=== PATIENT | female | born 1970 | race Caucasian/White ===

== ENCOUNTER 2022-02-13 07:27 | Observation (INO) | payer OTHER ==
[~2022-02-13 07:27] MED LIST: Sensorcaine 0.25% 10 ML ONE
[2022-02-13] MEDS ORDERED: Pepcid 20 MG PO ONE (07:52)
[2022-02-13] MEDS ORDERED: Transderm Scop 1.5MG Patch TOP PRN (07:52)
[2022-02-13] MEDS ORDERED: Reglan 10 MG/2 ML IV ONE (07:52)
[2022-02-13] MEDS ORDERED: OFIRMEV 1,000 MG/100 ML ML IV ONE (07:57)
[2022-02-13] MEDS ORDERED: MEFOXIN 2 GM PREMIX** 2 GM/50 ML ML IV ONE (07:58)
[2022-02-13] MEDS ORDERED: OFIRMEV 100 ML IV ONE (07:58)
[2022-02-13] MEDS ORDERED: Reglan 10 MG/2 ML ONE (07:59)
[2022-02-13] MEDS ORDERED: Transderm Scop 1.5MG Patch ONE (07:59)
[2022-02-13] MEDS ORDERED: Lactated Ringers 1,000 ML IV ONE (07:59)
[2022-02-13] MEDS ORDERED: Pepcid 20 MG VIAL IV ONE (07:59)
[2022-02-13] MEDS ORDERED: Pepcid 20 MG VIAL IV SCH (08:00)
[2022-02-13] MEDS ORDERED: NEURONTIN 300 MG PO SCH (08:00)
[2022-02-13] MEDS ORDERED: Lactated Ringers 1,000 ML IV SCH (08:00)
[2022-02-13] MEDS ORDERED: TYLENOL EXTRA STRENGTH 500 MG PO SCH (08:00)
[2022-02-13] MEDS ORDERED: MEFOXIN 2 GM PREMIX** 2 GM/50 ML ML IV SCH (08:00)
[2022-02-13 08:25] LABS: INFLUENZA A NEGATIVE (NEGATIVE); INFLUENZA B NEGATIVE (NEGATIVE); RESPIRATORY SYNCTIAL VIRUS NEGATIVE (Negative); SARS-CoV-2 Xpert Express NEGATIVE (NEGATIVE)
[2022-02-13 08:46] LABS: Hematocrit 44.6 % (35-47); Hemoglobin 14.2 gm/dl (12.0-16.0); Mean Cell Volume 92.5 fl (78-100); Mean Corpuscular Hemoglobin 29.5 pg (26-32); Mean Corpuscular Hgb Concent. 31.8 g/dl (32-36); Mean Platelet Volume 11.6 fl (7.5-11.0); Platelet Count 183 K/mm3 (150-450); Red Blood Count 4.82 M/mm3 (4.1-5.4); Red Cell Distribution Width 14.8 % (11.5-14.0); White Blood Count 3.9 K/mm3 (4.0-10.5)
[2022-02-13 08:54] LABS: ALBUMIN 3.9 g/dL (3.5-5.0); ALKALINE PHOSPHATASE 51 U/L (38-126); ANION GAP 11.6 MEQ/L (5-15); BLOOD UREA NITROGEN 7 mg/dL (7-17); CHLORIDE 104 mmol/L (98-107); Calcium 9.3 mg/dL (8.4-10.2); Carbon Dioxide 29 mmol/L (22-30); Creatinine 1 0.71 mg/dL (0.52-1.04); EST GLOMERULAR FILTRATION RATE > 60.0 ML/MIN; Glucose 106 mg/dL (74-106); Potassium 3.8 mmol/L (3.5-5.1); SGOT/AST 17 U/L (14-36); SGPT/ALT 12 U/L (0-35); SODIUM 140 mmol/L (137-145)
[2022-02-13 09:20] LABS: ABO TYPING A
[2022-02-13 09:21] LABS: Antibody Screen NEGATIVE (NEGATIVE); RH TYPING POSITIVE
[2022-02-13] MEDS ORDERED: Versed 2 MG/2 ML Injection ONE (10:02)
[2022-02-13] MEDS ORDERED: Zemuron 100 MG/10 ML ONE (10:02)
[2022-02-13] MEDS ORDERED: BRIDION 200MG/2ML IV ONE (10:02)
[2022-02-13] MEDS ORDERED: Zofran 4 MG/2 ML VIAL ONE (10:02)
[2022-02-13] MEDS ORDERED: Decadron 4 MG INJ ONE (10:02)
[2022-02-13] MEDS ORDERED: Astramorph-Pf 5 MG/10 ML ONE (10:02)
[2022-02-13] MEDS ORDERED: Xylocaine-Mpf 2% 5 Ml Vial ONE (10:02)
[2022-02-13] MEDS ORDERED: DIPRIVAN 200 MG/20 ML IV ONE (10:02)
[2022-02-13] MEDS ORDERED: SUBLIMAZE 100 MCG/2 ML ONE (10:02)
[2022-02-13] MEDS ORDERED: TORAdol 30 mg Injection ONE (10:02)
[2022-02-13] MEDS ORDERED: Ephedrine Sulfate 50 MG/ML ONE (10:52)
[2022-02-13] MEDS ORDERED: ROBINUL ONE (11:01)
[2022-02-13] MEDS ORDERED: XYLOCAINE 1%/Epi 1:100000 MDV 20 ML ONE (11:35)
[2022-02-13] MEDS ORDERED: Nubain 10 MG/ML IV PRN (13:00)
[2022-02-13] MEDS ORDERED: MORPHINE SULFATE 2 MG INJ IV PRN (13:00)
[2022-02-13] MEDS ORDERED: PERCOCET TABLET 5/325MG PO PRN (13:00)
[2022-02-13] MEDS ORDERED: BENADRYL 50 MG/ML IV PRN (13:00)
[2022-02-13] MEDS ORDERED: DEMEROL 50 MG IV PRN (13:00)
[2022-02-13] MEDS ORDERED: Sodium Chloride 0.9% 10 ML FLUSH Syringe IJ PRN (13:00)
[2022-02-13] MEDS ORDERED: Narcan 0.4 MG/ML IV PRN (13:00)
[2022-02-13] MEDS ORDERED: Zofran 4 MG/2 ML VIAL IV PRN ×2 (13:00→13:43)
[2022-02-13] MEDS ORDERED: CLARITIN 10 MG PO PRN (13:00)
[2022-02-13] MEDS ORDERED: TORAdol 30 mg Injection IV PRN (13:44)
[2022-02-13] MEDS ORDERED: MEDICATION INTERVENTION PO SCH ×2 (14:15)
[2022-02-13] MEDS: MEFOXIN 2 GM PREMIX** 2 GM/50 ML ML IV SCH ×2 (14:34→21:17)
[2022-02-13] MEDS: Reglan 10 MG/2 ML IV SCH ×2 (14:34→21:25)
[2022-02-13] MEDS: Mylicon 80MG PO SCH ×2 (14:34→21:25)
[2022-02-13] MEDS: Lactated Ringers 1,000 ML IV SCH ×2 (14:34→23:09)
[2022-02-13 15:24] LABS: Bacteria RARE /HPF (NEGATIVE); RBC 0-2 /HPF (0-2)
[2022-02-13 15:33] LABS: Appearance CLEAR (CLEAR); Bilirubin NEGATIVE (NEGATIVE); Dipstick done @ ? MAIN LAB; Glucose NEGATIVE (NEGATIVE); Ketones NEGATIVE (NEGATIVE); Nitrite NEGATIVE (NEGATIVE); Protein,Urine Dip NEGATIVE (Negative); RBC TRACE-INTACT Ery/ul (0-5); Urobilinogen 0.2 mg/dL (0-1)
[2022-02-13 18:33] LABS: Hematocrit 47.3 % (35-47); Hemoglobin 15.4 gm/dl (12.0-16.0); Mean Cell Volume 93.7 fl (78-100); Mean Corpuscular Hemoglobin 30.5 pg (26-32); Mean Corpuscular Hgb Concent. 32.6 g/dl (32-36); Mean Platelet Volume 11.6 fl (7.5-11.0); Platelet Count 156 K/mm3 (150-450); Red Blood Count 5.05 M/mm3 (4.1-5.4); Red Cell Distribution Width 14.9 % (11.5-14.0); White Blood Count 6.1 K/mm3 (4.0-10.5)
[2022-02-13] MEDS ORDERED: Pepcid 20 MG ONE (20:16)
[2022-02-13] MEDS ORDERED: Desyrel 150 MG ONE (20:16)
[2022-02-13] MEDS: Docusate Sodium 100 MG PO SCH (21:24)
[2022-02-13] MEDS ORDERED: Desyrel 150 MG PO SCH (22:00)
[2022-02-13] MEDS ORDERED: Pepcid 20 MG PO SCH (22:00)
[2022-02-14] MEDS ORDERED: Sodium Chloride 0.9% 1000 ML 1,000 ML ONE (02:04)
[2022-02-14] MEDS ORDERED: Sodium Chloride 0.9% 1000 ML 1,000 ML IV SCH (02:15)
[2022-02-14] MEDS: MEFOXIN 2 GM PREMIX** 2 GM/50 ML ML IV SCH ×2 (02:52→07:55)
[2022-02-14] MEDS: Mylicon 80MG PO SCH (06:04)
[2022-02-14 06:06] LABS: Hematocrit 38.6 % (35-47); Hemoglobin 12.2 gm/dl (12.0-16.0); Mean Cell Volume 95.1 fl (78-100); Mean Corpuscular Hgb Concent. 31.6 g/dl (32-36); Mean Platelet Volume 11.7 fl (7.5-11.0); Platelet Count 156 K/mm3 (150-450); Red Blood Count 4.06 M/mm3 (4.1-5.4); Red Cell Distribution Width 14.8 % (11.5-14.0); White Blood Count 6.9 K/mm3 (4.0-10.5)
[2022-02-14] MEDS: Reglan 10 MG/2 ML IV SCH (06:09)
[2022-02-14 06:44] LABS: ALBUMIN 2.8 g/dL (3.5-5.0); CHLORIDE 106 mmol/L (98-107); Potassium 3.8 mmol/L (3.5-5.1); SODIUM 138 mmol/L (137-145)
[2022-02-14] MEDS: Lactated Ringers 1,000 ML IV SCH (07:02)
[2022-02-14 07:22] LABS: ALKALINE PHOSPHATASE 40 U/L (38-126); ANION GAP 11.8 MEQ/L (5-15); BLOOD UREA NITROGEN 8 mg/dL (7-17); Carbon Dioxide 23 mmol/L (22-30); Creatinine 1 0.63 mg/dL (0.52-1.04); EST GLOMERULAR FILTRATION RATE > 60.0 ML/MIN; Glucose 105 mg/dL (74-106); SGOT/AST 30 U/L (14-36); SGPT/ALT 31 U/L (0-35); Total Protein 5.3 g/dL (6.3-8.2)
[2022-02-14 07:35] VITALS: BP 102/56; PULSE 69
--- NOTE | 2022-02-14 07:37 | PCM.NOTE ---
Date and Time: 02/14/22 0735 Subjective Assessment: pod 1 sp lavh pt resting in bed and doing well able to ambulate and tolerate diet. vss afebrile abd; soft incision c/d/intact ext; no clubbing cyanosis or edema hgb; 12 a/p sp lavh b/l salpingectomy dc home today fu office in 2 wks Objective Exam Wound Assessment: Skin/Wound Assessment Wound/Incision Assessment Start: 02/13/22 13:21 Text: Status: Active Freq: Q4H Protocol: Document 02/14/22 04:00 BA (Rec: 02/14/22 04:06 BA [id number]) Wound/Incision Assessment Anterior Medial Abdomen Wound Assessment Shift Assessment Wound Type Puncture Drainage Amount None Drainage Odor None/Absent General Appearance Well Approximated Comment dermabond intact Left Anterior Abdomen Wound Assessment Shift Assessment Wound Type Puncture Drainage Amount None General Appearance Well Approximated Comment dermabond intact Right Anterior Abdomen Wound Assessment Shift Assessment Wound Type Puncture Drainage Amount None Drainage Odor None/Absent General Appearance Well Approximated Comment dermabond intact Wound Photo Photo Taken No OBJECTIVE DATA Vital Signs: Vital Signs - 24 hr Temp Pulse Resp BP Pulse Ox 02/14/22 04:00 97.0 F 66 15 88/52 97 02/14/22 00:47 66 99 02/13/22 23:51 97.5 F 65 12 85/47 99 02/13/22 20:00 97.5 F 68 16 91/50 97 02/13/22 19:22 99 02/13/22 16:00 97.9 F 60 16 103/59 97 02/13/22 14:39 97.5 F 60 16 106/58 97 02/13/22 14:15 86 L 02/13/22 14:00 97.1 F 61 16 105/59 92 L 02/13/22 13:36 97.6 F 75 18 112/72 95 02/13/22 13:25 97.9 F 62 16 101/56 95 02/13/22 13:05 97.1 F 62 16 105/59 94 L 02/13/22 08:57 97.6 F 75 18 112/72 95 02/13/22 08:44 97.6 F 75 18 112/72 95 02/13/22 08:23 97.6 F 75 18 112/72 95 Pain Assessment - Last Documented Pain Intensity 0 Intake and Output: Intake & Output 02/11/22 02/12/22 02/13/22 02/14/22 11:59 11:59 11:59 11:59 Intake Total 2941 Output Total 600 Balance 2341 Weight 85.9 kg 85.9 kg Lab Results: Lab Results-Last 24 Hours 02/13/22 02/13/22 02/13/22 Range/Units 07:42 08:20 08:30 WBC 3.9 L (4.0-10.5) K/mm3 RBC 4.82 (4.1-5.4) M/mm3 Hgb 14.2 (12.0-16.0) gm/dl Hct 44.6 (35-47) % MCV 92.5 (78-100) fl MCH 29.5 (26-32) pg MCHC 31.8 L (32-36) g/dl RDW 14.8 H (11.5-14.0) % Plt Count 183 (150-450) K/mm3 MPV 11.6 H (7.5-11.0) fl Sodium (137-145) mmol/L Potassium (3.5-5.1) mmol/L Chloride (98-107) mmol/L Carbon Dioxide (22-30) mmol/L Anion Gap (5-15) MEQ/L BUN (7-17) mg/dL Creatinine (0.52-1.04) mg/dL Estimated GFR ML/MIN Glucose (74-106) mg/dL Calcium (8.4-10.2) mg/dL Total Bilirubin (0.2-1.3) mg/dL AST (14-36) U/L ALT (0-35) U/L Alkaline Phosphatase (38-126) U/L Serum Total Protein (6.3-8.2) g/dL Albumin (3.5-5.0) g/dL Urinalys Dipstick Clnc Urine Color (YELLOW) Urine Appearance (CLEAR) Urine pH (5-6) Ur Specific [place] (1.005-1.025) POC Urine Protein Conf (Negative) Urine Ketones (NEGATIVE) Urine Nitrite (NEGATIVE) Urine Bilirubin (NEGATIVE) Urine Urobilinogen (0-1) mg/dL Urine Leukocytes (NEGATIVE) Urine WBC (Auto) (0-5) /HPF Urine RBC (Auto) (0-2) /HPF U Epithel Cells (Auto) (FEW) /HPF Urine Bacteria (Auto) (NEGATIVE) /HPF Urine RBC (0-5) Shane/ul Urine Glucose (NEGATIVE) mg/dL Urine HCG, Qual NEGATIVE (Negative) Influenza Type A Ag NEGATIVE (NEGATIVE) Influenza Type B Ag NEGATIVE (NEGATIVE) RSV (PCR) NEGATIVE (Negative) SARS-CoV-2 (PCR) NEGATIVE (NEGATIVE) ABO Group Rh Factor Antibody Screen (NEGATIVE) 02/13/22 02/13/22 02/13/22 Range/Units 08:30 08:30 10:50 WBC (4.0-10.5) K/mm3 RBC (4.1-5.4) M/mm3 Hgb (12.0-16.0) gm/dl Hct (35-47) % MCV (78-100) fl MCH (26-32) pg MCHC (32-36) g/dl RDW (11.5-14.0) % Plt Count (150-450) K/mm3 MPV (7.5-11.0) fl Sodium 140 (137-145) mmol/L Potassium 3.8 (3.5-5.1) mmol/L Chloride 104 (98-107) mmol/L Carbon Dioxide 29 (22-30) mmol/L Anion Gap 11.6 (5-15) MEQ/L BUN 7 (7-17) mg/dL Creatinine 0.71 (0.52-1.04) mg/dL Estimated GFR > 60.0 ML/MIN Glucose 106 (74-106) mg/dL Calcium 9.3 (8.4-10.2) mg/dL Total Bilirubin 0.80 (0.2-1.3) mg/dL AST 17 (14-36) U/L ALT 12 (0-35) U/L Alkaline Phosphatase 51 (38-126) U/L Serum Total Protein 7.0 (6.3-8.2) g/dL Albumin 3.9 (3.5-5.0) g/dL Urinalys Dipstick Clnc MAIN LAB Urine Color YELLOW (YELLOW) Urine Appearance CLEAR (CLEAR) Urine pH 7.0 (5-6) Ur Specific [place] 1.020 (1.005-1.025) POC Urine Protein Conf NEGATIVE (Negative) Urine Ketones NEGATIVE (NEGATIVE) Urine Nitrite NEGATIVE (NEGATIVE) Urine Bilirubin NEGATIVE (NEGATIVE) Urine Urobilinogen 0.2 (0-1) mg/dL Urine Leukocytes NEGATIVE (NEGATIVE) Urine WBC (Auto) NONE (0-5) /HPF Urine RBC (Auto) 0-2 (0-2) /HPF U Epithel Cells (Auto) NONE (FEW) /HPF Urine Bacteria (Auto) RARE (NEGATIVE) /HPF Urine RBC TRACE-INTACT (0-5) Shane/ul Urine Glucose NEGATIVE (NEGATIVE) mg/dL Urine HCG, Qual (Negative) Influenza Type A Ag (NEGATIVE) Influenza Type B Ag (NEGATIVE) RSV (PCR) (Negative) SARS-CoV-2 (PCR) (NEGATIVE) ABO Group A Rh Factor POSITIVE Antibody Screen NEGATIVE (NEGATIVE) 02/13/22 02/14/22 02/14/22 Range/Units 18:30 04:30 04:30 WBC 6.1 6.9 (4.0-10.5) K/mm3 RBC 5.05 4.06 L (4.1-5.4) M/mm3 Hgb 15.4 12.2 D (12.0-16.0) gm/dl Hct 47.3 H 38.6 (35-47) % MCV 93.7 95.1 (78-100) fl MCH 30.5 30.0 (26-32) pg MCHC 32.6 31.6 L (32-36) g/dl RDW 14.9 H 14.8 H (11.5-14.0) % Plt Count 156 156 (150-450) K/mm3 MPV 11.6 H 11.7 H (7.5-11.0) fl Sodium 138 (137-145) mmol/L Potassium 3.8 (3.5-5.1) mmol/L Chloride 106 (98-107) mmol/L Carbon Dioxide 23 (22-30) mmol/L Anion Gap 11.8 (5-15) MEQ/L BUN 8 (7-17) mg/dL Creatinine 0.63 (0.52-1.04) mg/dL Estimated GFR > 60.0 ML/MIN Glucose 105 (74-106) mg/dL Calcium 8.0 L (8.4-10.2) mg/dL Total Bilirubin 0.50 (0.2-1.3) mg/dL AST 30 (14-36) U/L ALT 31 (0-35) U/L Alkaline Phosphatase 40 (38-126) U/L Serum Total Protein 5.3 L (6.3-8.2) g/dL Albumin 2.8 L (3.5-5.0) g/dL Urinalys Dipstick Clnc Urine Color (YELLOW) Urine Appearance (CLEAR) Urine pH (5-6) Ur Specific [place] (1.005-1.025) POC Urine Protein Conf (Negative) Urine Ketones (NEGATIVE) Urine Nitrite (NEGATIVE) Urine Bilirubin (NEGATIVE) Urine Urobilinogen (0-1) mg/dL Urine Leukocytes (NEGATIVE) Urine WBC (Auto) (0-5) /HPF Urine RBC (Auto) (0-2) /HPF U Epithel Cells (Auto) (FEW) /HPF Urine Bacteria (Auto) (NEGATIVE) /HPF Urine RBC (0-5) Shane/ul Urine Glucose (NEGATIVE) mg/dL Urine HCG, Qual (Negative) Influenza Type A Ag (NEGATIVE) Influenza Type B Ag (NEGATIVE) RSV (PCR) (Negative) SARS-CoV-2 (PCR) (NEGATIVE) ABO Group Rh Factor Antibody Screen (NEGATIVE) Assessment/Plan (1) S/P laparoscopic assisted vaginal hysterectomy (LAVH) Current Visit: Yes Status: Acute Code(s): Z90.710 - ACQUIRED ABSENCE OF BOTH CERVIX AND UTERUS (2) Uterine prolapse Current Visit: Yes Status: Acute Code(s): N81.4 - UTEROVAGINAL PROLAPSE, UNSPECIFIED
--- NOTE | 2022-02-14 07:42 | PCM.DS ---
Discharge Summary Date of Admission: 02/13/22 07:27 Admitting Physician: VIRA FINNEGAN DO Primary Care Provider: CONSTANCE AUSTIN Allergies Allergies codeine Allergy (Verified 02/13/22 08:09) Difficulty Breathing Hospital Summary - Hospital Course Hospital Course: pt was admitted on february 13 for undergoing laparoscopic assisted vaginal hysterectomy b/l salpingectomy secondary to uterine prolapse and underwent procedure without complication. during postop period did well and now stable for discharge. had stable hgb at 12 with normal cr level. urine output normal. pt was given ultram for pain management and was advised to fu in office in 2 wks. all questions answered to her satisfaction. pt will also go home with clindamycin bid 5 days for prophylaxis for recent hx of bacterial vaginosis even though she had been recently treated for this. - Vitals & Intake/Output Vital Signs: Vital Signs Temperature 97.5 F 02/14/22 07:34 Pulse Rate 69 02/14/22 07:34 Respiratory Rate 16 02/14/22 07:34 Blood Pressure 102/56 02/14/22 07:34 O2 Sat by Pulse Oximetry 97 02/14/22 04:00 Intake & Output: Intake & Output 02/11/22 02/12/22 02/13/22 02/14/22 11:59 11:59 11:59 11:59 Intake Total 2941 Output Total 600 Balance 2341 Weight 85.9 kg 85.9 kg - Lab Result Diagrams: 02/14/22 04:30 02/14/22 04:30 Lab Results-Last 24 Hrs: Lab Results-Last 24 Hours 02/13/22 02/13/22 02/13/22 Range/Units 07:42 08:20 08:30 WBC 3.9 L (4.0-10.5) K/mm3 RBC 4.82 (4.1-5.4) M/mm3 Hgb 14.2 (12.0-16.0) gm/dl Hct 44.6 (35-47) % MCV 92.5 (78-100) fl MCH 29.5 (26-32) pg MCHC 31.8 L (32-36) g/dl RDW 14.8 H (11.5-14.0) % Plt Count 183 (150-450) K/mm3 MPV 11.6 H (7.5-11.0) fl Sodium (137-145) mmol/L Potassium (3.5-5.1) mmol/L Chloride (98-107) mmol/L Carbon Dioxide (22-30) mmol/L Anion Gap (5-15) MEQ/L BUN (7-17) mg/dL Creatinine (0.52-1.04) mg/dL Estimated GFR ML/MIN Glucose (74-106) mg/dL Calcium (8.4-10.2) mg/dL Total Bilirubin (0.2-1.3) mg/dL AST (14-36) U/L ALT (0-35) U/L Alkaline Phosphatase (38-126) U/L Serum Total Protein (6.3-8.2) g/dL Albumin (3.5-5.0) g/dL Urinalys Dipstick Clnc Urine Color (YELLOW) Urine Appearance (CLEAR) Urine pH (5-6) Ur Specific [place] (1.005-1.025) POC Urine Protein Conf (Negative) Urine Ketones (NEGATIVE) Urine Nitrite (NEGATIVE) Urine Bilirubin (NEGATIVE) Urine Urobilinogen (0-1) mg/dL Urine Leukocytes (NEGATIVE) Urine WBC (Auto) (0-5) /HPF Urine RBC (Auto) (0-2) /HPF U Epithel Cells (Auto) (FEW) /HPF Urine Bacteria (Auto) (NEGATIVE) /HPF Urine RBC (0-5) Shane/ul Urine Glucose (NEGATIVE) mg/dL Urine HCG, Qual NEGATIVE (Negative) Influenza Type A Ag NEGATIVE (NEGATIVE) Influenza Type B Ag NEGATIVE (NEGATIVE) RSV (PCR) NEGATIVE (Negative) SARS-CoV-2 (PCR) NEGATIVE (NEGATIVE) ABO Group Rh Factor Antibody Screen (NEGATIVE) 02/13/22 02/13/22 02/13/22 Range/Units 08:30 08:30 10:50 WBC (4.0-10.5) K/mm3 RBC (4.1-5.4) M/mm3 Hgb (12.0-16.0) gm/dl Hct (35-47) % MCV (78-100) fl MCH (26-32) pg MCHC (32-36) g/dl RDW (11.5-14.0) % Plt Count (150-450) K/mm3 MPV (7.5-11.0) fl Sodium 140 (137-145) mmol/L Potassium 3.8 (3.5-5.1) mmol/L Chloride 104 (98-107) mmol/L Carbon Dioxide 29 (22-30) mmol/L Anion Gap 11.6 (5-15) MEQ/L BUN 7 (7-17) mg/dL Creatinine 0.71 (0.52-1.04) mg/dL Estimated GFR > 60.0 ML/MIN Glucose 106 (74-106) mg/dL Calcium 9.3 (8.4-10.2) mg/dL Total Bilirubin 0.80 (0.2-1.3) mg/dL AST 17 (14-36) U/L ALT 12 (0-35) U/L Alkaline Phosphatase 51 (38-126) U/L Serum Total Protein 7.0 (6.3-8.2) g/dL Albumin 3.9 (3.5-5.0) g/dL Urinalys Dipstick Clnc MAIN LAB Urine Color YELLOW (YELLOW) Urine Appearance CLEAR (CLEAR) Urine pH 7.0 (5-6) Ur Specific [place] 1.020 (1.005-1.025) POC Urine Protein Conf NEGATIVE (Negative) Urine Ketones NEGATIVE (NEGATIVE) Urine Nitrite NEGATIVE (NEGATIVE) Urine Bilirubin NEGATIVE (NEGATIVE) Urine Urobilinogen 0.2 (0-1) mg/dL Urine Leukocytes NEGATIVE (NEGATIVE) Urine WBC (Auto) NONE (0-5) /HPF Urine RBC (Auto) 0-2 (0-2) /HPF U Epithel Cells (Auto) NONE (FEW) /HPF Urine Bacteria (Auto) RARE (NEGATIVE) /HPF Urine RBC TRACE-INTACT (0-5) Shane/ul Urine Glucose NEGATIVE (NEGATIVE) mg/dL Urine HCG, Qual (Negative) Influenza Type A Ag (NEGATIVE) Influenza Type B Ag (NEGATIVE) RSV (PCR) (Negative) SARS-CoV-2 (PCR) (NEGATIVE) ABO Group A Rh Factor POSITIVE Antibody Screen NEGATIVE (NEGATIVE) 02/13/22 02/14/22 02/14/22 Range/Units 18:30 04:30 04:30 WBC 6.1 6.9 (4.0-10.5) K/mm3 RBC 5.05 4.06 L (4.1-5.4) M/mm3 Hgb 15.4 12.2 D (12.0-16.0) gm/dl Hct 47.3 H 38.6 (35-47) % MCV 93.7 95.1 (78-100) fl MCH 30.5 30.0 (26-32) pg MCHC 32.6 31.6 L (32-36) g/dl RDW 14.9 H 14.8 H (11.5-14.0) % Plt Count 156 156 (150-450) K/mm3 MPV 11.6 H 11.7 H (7.5-11.0) fl Sodium 138 (137-145) mmol/L Potassium 3.8 (3.5-5.1) mmol/L Chloride 106 (98-107) mmol/L Carbon Dioxide 23 (22-30) mmol/L Anion Gap 11.8 (5-15) MEQ/L BUN 8 (7-17) mg/dL Creatinine 0.63 (0.52-1.04) mg/dL Estimated GFR > 60.0 ML/MIN Glucose 105 (74-106) mg/dL Calcium 8.0 L (8.4-10.2) mg/dL Total Bilirubin 0.50 (0.2-1.3) mg/dL AST 30 (14-36) U/L ALT 31 (0-35) U/L Alkaline Phosphatase 40 (38-126) U/L Serum Total Protein 5.3 L (6.3-8.2) g/dL Albumin 2.8 L (3.5-5.0) g/dL Urinalys Dipstick Clnc Urine Color (YELLOW) Urine Appearance (CLEAR) Urine pH (5-6) Ur Specific [place] (1.005-1.025) POC Urine Protein Conf (Negative) Urine Ketones (NEGATIVE) Urine Nitrite (NEGATIVE) Urine Bilirubin (NEGATIVE) Urine Urobilinogen (0-1) mg/dL Urine Leukocytes (NEGATIVE) Urine WBC (Auto) (0-5) /HPF Urine RBC (Auto) (0-2) /HPF U Epithel Cells (Auto) (FEW) /HPF Urine Bacteria (Auto) (NEGATIVE) /HPF Urine RBC (0-5) Shane/ul Urine Glucose (NEGATIVE) mg/dL Urine HCG, Qual (Negative) Influenza Type A Ag (NEGATIVE) Influenza Type B Ag (NEGATIVE) RSV (PCR) (Negative) SARS-CoV-2 (PCR) (NEGATIVE) ABO Group Rh Factor Antibody Screen (NEGATIVE) - Procedures and Test Procedures and Tests throughout Hospitalization: Therapy Orders & Screens 02/13/22 13:50 Oxygen Nasal Cannula 3 lpm Comment: Diagnosis: S/P Lap Vaginal Hysterectomy Discharge Exam Wound Assessment: Skin/Wound Assessment Wound/Incision Assessment Start: 02/13/22 13:21 Text: Status: Active Freq: Q4H Protocol: Document 02/14/22 04:00 NOE (Rec: 02/14/22 04:06 NOE [id number]) Wound/Incision Assessment Anterior Medial Abdomen Wound Assessment Shift Assessment Wound Type Puncture Drainage Amount None Drainage Odor None/Absent General Appearance Well Approximated Comment dermabond intact Left Anterior Abdomen Wound Assessment Shift Assessment Wound Type Puncture Drainage Amount None General Appearance Well Approximated Comment dermabond intact Right Anterior Abdomen Wound Assessment Shift Assessment Wound Type Puncture Drainage Amount None Drainage Odor None/Absent General Appearance Well Approximated Comment dermabond intact Wound Photo Photo Taken No Final Diagnosis/Problem List - Final Discharge Diagnosis/Problem (1) S/P laparoscopic assisted vaginal hysterectomy (LAVH) Current Visit: Yes Status: Acute Code(s): Z90.710 - ACQUIRED ABSENCE OF BOTH CERVIX AND UTERUS (2) Uterine prolapse Current Visit: Yes Status: Acute Code(s): N81.4 - UTEROVAGINAL PROLAPSE, UNSPECIFIED - Discharge Disposition: Home, Self-Care Condition: Stable Prescriptions: New Tramadol HCl 50 mg [Ultram 50 mg] 50 mg PO Q6H PRN PRN 7 Days #28 tab let PRN Reason: Moderate To Severe Pain clindamycin HCL [Clindamycin HCl] 300 mg PO BID #10 No Action Mv-Mn/Iron/Folic Acid/Herb 190 [Vitamin D3 Complete Caplet] 4,000 iu PO DAILY Ascorbic Acid/Collagen Hydr [Collagen Plus Vit C Capsule] 1 each PO DAILY Levothyroxine Sodium 75 Mcg [Synthroid 75 Mcg] 75 mcg PO DAILY Omeprazole 20 mg PO DAILY Bisoprolol/Hydrochlorothiazide [Bisoprolol-Hctz 5-6.25 mg Tab] 1 each PO DAILY Vits96/Iron Fum/Folic [ Tablet] 2 each PO DAILY Follow up with: CONSTANCE AUSTIN MD [Primary Care Provider] - WAHIB,VIRA, DO [ACTIVE STAFF] - 02/28/22 3:30 pm
[2022-02-14 07:51] VITALS: O2SAT 99
[2022-02-14] MEDS ORDERED: ENOXAPARIN SODIUM SQ SCH (08:00)
--- NOTE | 2022-02-14 08:48 | OP ---
SURGERY DATE/TIME: 02/13/2022 1028 PREOPERATIVE DIAGNOSES: 1) Symptomatic uterine prolapse. 2) Cystocele. POSTOPERATIVE DIAGNOSIS: Symptomatic uterine prolapse. PROCEDURE: Laparoscopic assisted vaginal hysterectomy with bilateral salpingectomy. SURGEON: Taz Cox D.O. [employer] DEVELOPER: Lyle Whelan surgical scrub technologist. ANESTHESIA: General. ESTIMATED BLOOD LOSS: 50 cc. COMPLICATIONS: None. INDICATIONS: The risks and benefits, indications, alternatives of the procedure were reviewed with the patient prior to the procedure. The patient understood the risk of infection, bleeding, bowel injury, bladder injury, ureteral injury, pelvic infection, thromboembolic disorder associated with the surgery and desires to have the surgery as a possible means to alleviate her current medical condition. DESCRIPTION OF PROCEDURE AND FINDINGS: At this point the patient is taken to the operating room, given general sedation, placed in dorsal lithotomy position, prepped and draped in the usual sterile fashion. A weighted speculum is then placed in the patient's vagina and the anterior lip of the cervix grasped with a single tooth tenaculum. Endocervical dilators were advanced through the endocervical canal as a means to dilate the cervix and uterine manipulator was then placed in through endocervical canal as a means to manipulate the uterus and used for elevation. From this point attention was then turned to the patient's abdomen where a 5 mm skin incision is made in the umbilical fold. A 5 mm trocar and sleeve were advanced under direct visualization where pneumoperitoneum was obtained with 4 liters of CO2 gas. An additional incision was made in the left middle quadrant region where a 5 mm incision was made and a 5 mm trocar and sleeve were advanced under direct visualization and a third incision was made on the right middle quadrant region where a 5 mm trocar and sleeve were advanced under direct visualization. A survey of the patient's pelvis and abdomen revealed her to have a normal sized uterus at approximately 7 cm in length. From this point, the uterus was elevated and was retracted to one side and the LigaSure was used to clamp, coagulate and cut the left utero-ovarian ligament. Ovaries were not removed. The LigaSure was taken over the round ligament where it was clamped, coagulated and cut taking down to the uterine vasculature where they too were clamped, coagulated and cult and hemostasis was obtained. The bladder flap developed on its side. Good hemostasis was noted. The same procedure was performed on the right side where the right utero-ovarian ligament clamped, coagulated and cut taken down towards the round ligament were it too was clamped, coagulated and cut and hemostasis was obtained. The uterine vessels were visualized where it too was clamped, coagulated and cut and a bladder flap developed on its side. From this point, the remaining procedure was performed vaginally where at this point a weighted speculum is then placed into the vagina and the cervix was grasped with Felipe clamps. The cervix is then injected circumferentially with 1% lidocaine with epinephrine. The cervix was then circumferentially incised with a scalpel and the bladder dissected off the pubovesical cervical fascia anteriorly with a sponge stick and Metzenbaum scissors. The anterior cul-de-sac was then entered sharply and the same procedure was performed posteriorly and the posterior cul-de-sac was entered sharply. At this point Carlso clamps were placed over the uterosacral ligaments on either side. These were then transected and suture ligated with 0 Vicryl suture. Hemostasis was assured. The Cardinal ligaments were then clamped on both sides, transected and suture ligated in similar fashion. The uterine arteries and the broad ligament were clamped with Carlos clamp, transected and suture ligated on both sides. Good hemostasis was visualized. From this point the uterus is then delivered. At this point the vaginal cuff angles were closed with figure-of-8 stitches of 0 Vicryl on both sides and transected ipsilateral Cardinal and uterosacral ligaments. The remainder of the vaginal cuff was closed with figure-of-8 stitches of 0 Vicryl in an interrupted fashion. From this point additional look was made laparoscopically and there was no bleeding that was noted. The bilateral fallopian tubes were elevated and LigaSure was placed on the mesosalpinx where it was clamped, coagulated and incised and hemostasis was obtained and was removed from the trocar site. Irrigation was made. At this point there was no bleeding that was noted. From this point all instruments were removed from the patient's abdominal region and the incision was closed with 4-0 Monocryl suture. The patient was taken out of the dorsal lithotomy position, was taken out of anesthesia and was then taken to the recovery room in stable condition. All instruments and laps counts were accounted for x2. The anterior repair was not performed due to after removal of the uterus, there was elevation of her bladder and there was minimal cystocele that was noted therefore a vaginal hysterectomy was performed and not the anterior repair.
[2022-02-14] MEDS ORDERED: ULTRAM 50 MG PO ONE (09:26)
[2022-02-14] MEDS: Docusate Sodium 100 MG PO SCH (09:46)
[2022-02-14] MEDS ORDERED: IRON FUM PO SCH (10:00)
[2022-02-14] MEDS ORDERED: NON-FORMULARY ITEM (Mv-Mn/Iron/Folic Acid/Herb 190 [Vitamin D3 Complete Caplet] 1 EACH Tab PO SCH (10:00)
[2022-02-14] MEDS ORDERED: CAPSU PO SCH (10:00)
[2022-02-14] MEDS ORDERED: ASCORBIC ACID PO SCH (10:00)
[2022-02-14] MEDS ORDERED: SYNTHROID 75 MCG PO SCH (10:00)
[2022-02-14] MEDS ORDERED: COLLAGEN HYDR PO SCH (10:00)
[2022-02-14] MEDS ORDERED: PRENATAL VITS96 PO SCH (10:00)
[2022-02-14] MEDS ORDERED: HOLD NARCOTIC ANALGESICS AND SEDATIVES X24 HR MC SCH (10:00)
[2022-02-14] MEDS ORDERED: [UNRECOGNIZED DRUG - OTHER] PO SCH (10:00)
[2022-02-14] MEDS ORDERED: FOLIC PO SCH (10:00)
== END 2022-02-14 10:15 | disposition home or self-care (01) ==
LOC: MED SURG 07:27 → EDSTATUS 10:04
PROVIDERS: ADMIT Obstetrics & Gynecology; ATTEND Obstetrics & Gynecology
DX: N81.4 Uterovaginal prolapse, unspecified (principal); Z20.828 Contact with and (suspected) exposure to other viral communicable diseases
CPT/HCPCS: 0241U; 36415; 58262; 80053; 81001; 84703; 85027; 86850; 86900; 86901; 87086; 94760; 94762; 62322; G0378; J0694; J1100; J1650; J1885; J2250; J2274; J2405; J2704; J3010; A9270-GY